=== PATIENT | male | born 1955 | race Caucasian/White ===

== ENCOUNTER 2020-08-21 09:45 | Inpatient (IN) ==
[2020-08-21] MEDS ORDERED: CeFAZolin Syr 2,000MG/20 ML 2,000 MG/20 ML SYRINGE IVPB ONE (10:03)
[2020-08-21] MEDS ORDERED: Ringers Solution, Lactated 1,000 ML IVC SCH ×2 (10:15→10:45)
[2020-08-21] MEDS ORDERED: *HR* OxyCODONE Immed Rel 5 MG TABLET PO PRN (10:44)
[2020-08-21] MEDS ORDERED: Ondansetron 4 MG/2 ML VIAL IVP PRN ×2 (10:44→15:34)
[2020-08-21] MEDS ORDERED: *HR* FentaNYL (PF) 100 MCG/2 ML VIAL IVP PRN (10:44)
[2020-08-21] MEDS ORDERED: Ondansetron 4 MG/2 ML VIAL ONE (11:59)
[2020-08-21] MEDS ORDERED: Lidocaine HCL 4 ML Topical Solution (Laryng-O-Jet Kit Sterile Pak) TP ONE (11:59)
[2020-08-21] MEDS ORDERED: Lidocaine -MPF 2% 2 ML VIAL ONE (11:59)
[2020-08-21] MEDS ORDERED: *HR* Rocuronium Bromide 50 MG/5 ML VIAL ONE ×2 (11:59→13:01)
[2020-08-21] MEDS ORDERED: *HR* FentaNYL (PF) 100 MCG/2 ML VIAL ONE (11:59)
[2020-08-21] MEDS ORDERED: Dexamethasone 4 MG/ML VIAL ONE (11:59)
[2020-08-21] MEDS ORDERED: *HR* Propofol 200 MG/20 ML VIAL IVP ONE (12:00)
[2020-08-21] MEDS ORDERED: *HR* Midazolam HCl 2 MG/2 ML VIAL ONE (12:00)
[2020-08-21] MEDS ORDERED: EPHEDrine 50 MG/ML VIAL ONE (12:42)
[2020-08-21] MEDS ORDERED: Sugammadex Sodium 200 MG/2 ML VIAL IV ONE (13:41)
[2020-08-21] MEDS ORDERED: *HR* HYDROMORPHONE 2 MG/ML VIAL ONE (14:02)
[2020-08-21] MEDS ORDERED: Ketorolac 15 MG/ML VIAL IVP ONE (15:06)
[2020-08-21] MEDS ORDERED: Iron Sucrose Complex 400 MG in 0.9 % Sodium Chloride 250 ML IVPB ONE (15:34)
[2020-08-21] MEDS ORDERED: Naloxone 0.4 MG/ML INJ IVP PRN (15:34)
[2020-08-21] MEDS: Gabapentin 300 MG CAPSULE PO SCH ×2 (15:50→20:59)
[2020-08-21] MEDS: 0.9 % Sodium Chloride 1,000 ML IVC SCH (15:50)
[2020-08-21] MEDS: *HR* HYDROcodone/Acet 5/325 mg TABLET PO PRN ×2 (15:50→19:44)
[2020-08-21] MEDS: Ipratropium/Albuterol Neb 3 ML IH SCH ×2 (15:52→20:17)
[2020-08-21] MEDS: Ketorolac 15 MG/ML VIAL IVP SCH ×2 (17:19→23:56)
[2020-08-21] MEDS: Sennosides/Docusate Sodium TABLET PO SCH (20:59)
[2020-08-21] MEDS: *HR* Heparin 5,000 UNIT/ML VIAL SQ SCH (20:59)
[2020-08-21] MEDS: traZODone 50 MG TABLET PO PRN (20:59)
[2020-08-21] MEDS: Famotidine 20 MG TABLET PO SCH (20:59)
[2020-08-22] MEDS: Ipratropium/Albuterol Neb 3 ML IH SCH ×6 (00:05→20:12)
[2020-08-22 02:35] LABS: Hematocrit 43.3 % (37.5-50.1); Hemoglobin 15.1 g/dL (12.9-16.9); Mean Corpuscular HGB Conc 34.9 g/dL (31.6-35.5); Mean Corpuscular Hemoglobin 31.2 pg (28.0-33.3); Mean Corpuscular Volume 89.5 fL (83.0-100.0); Mean Platelet Volume 9.4 fL (9.4-12.4); Platelet Count 268 K/mcL (140-400); Red Blood Count 4.84 M/mcL (4.19-5.50); Red Cell Distribution Width 12.6 % (11.5-14.5); White Blood Count 16.3 K/mcL (4.3-11.1)
[2020-08-22 02:57] LABS: Alanine Aminotransferase 21 Units/L (7-52); Albumin 3.9 g/dL (3.5-5.7); Albumin/Globulin Ratio 1.4 (1.1-2.2); Alkaline Phosphatase 58 Units/L (34-104); Aspartate Amino Transferase 25 Units/L (13-39); BUN/Creatinine Ratio 27 (6-26); Bilirubin,Direct 0.1 mg/dL (0.0-0.2); Bilirubin,Indirect 0.4 mg/dL (0.0-1.0); Bilirubin,Total 0.5 mg/dL (0.3-1.0); Blood Urea Nitrogen 19 mg/dL (8-23); Calcium 8.8 mg/dL (8.6-10.3); Carbon Dioxide 26 mEq/L (23-29); Chloride 102 mEq/L (98-107); Globulin 2.7 g/dL (2.4-3.5); Glucose 125 mg/dL (70-105); Magnesium 1.9 mg/dL (1.6-2.6); Osmolality,Calculated 290 (280-300); Potassium 3.6 mEq/L (3.5-5.1); Sodium 138 mEq/L (136-145); Total Protein 6.6 g/dL (6.4-8.9); eGFR For African Americans > 60 (> 60); eGFR For Non-African Americans > 60 (> 60)
[2020-08-22] MEDS: *HR* Heparin 5,000 UNIT/ML VIAL SQ SCH ×3 (05:45→22:40)
[2020-08-22] MEDS: Ketorolac 15 MG/ML VIAL IVP SCH ×3 (05:45→18:12)
[2020-08-22] MEDS: *HR* HYDROcodone/Acet 5/325 mg TABLET PO PRN ×3 (08:04→21:02)
[2020-08-22] MEDS: Finasteride 5 MG TABLET PO SCH (08:04)
[2020-08-22] MEDS: Sennosides/Docusate Sodium TABLET PO SCH ×2 (08:04→21:02)
[2020-08-22] MEDS: Aspirin Enteric Coated 81 MG Tablet PO SCH (08:04)
[2020-08-22] MEDS: Gabapentin 300 MG CAPSULE PO SCH ×3 (08:04→21:02)
[2020-08-22] MEDS: Famotidine 20 MG TABLET PO SCH ×2 (08:05→21:02)
[2020-08-22] MEDS: Melatonin 3 MG TABLET PO SCH ×2 (08:06→22:41)
[2020-08-22] MEDS: 0.9 % Sodium Chloride 1,000 ML IVC SCH (08:32)
[2020-08-22] MEDS: traZODone 50 MG TABLET PO PRN (22:41)
[2020-08-23] MEDS: Ipratropium/Albuterol Neb 3 ML IH SCH ×4 (00:04→11:20)
[2020-08-23] MEDS: Ketorolac 15 MG/ML VIAL IVP SCH ×2 (00:22→06:28)
[2020-08-23] MEDS: *HR* Heparin 5,000 UNIT/ML VIAL SQ SCH (06:29)
[2020-08-23 06:45] VITALS: BP 128/70
[2020-08-23] MEDS: Sennosides/Docusate Sodium TABLET PO SCH (07:44)
[2020-08-23] MEDS: Finasteride 5 MG TABLET PO SCH (07:44)
[2020-08-23] MEDS: Gabapentin 300 MG CAPSULE PO SCH (07:45)
[2020-08-23] MEDS: Famotidine 20 MG TABLET PO SCH (07:45)
[2020-08-23] MEDS: Aspirin Enteric Coated 81 MG Tablet PO SCH (07:45)
[2020-08-23] MEDS: *HR* HYDROcodone/Acet 5/325 mg TABLET PO PRN (10:38)
== END 2020-08-23 12:45 | disposition home or self-care (01) | DRG 165 ==
LOC: SAMDAY 09:45 → 2NNU 15:34
PROVIDERS: ADMIT Thoracic Surgery (Cardiothoracic Vascular Surgery); ATTEND Thoracic Surgery (Cardiothoracic Vascular Surgery)

== ENCOUNTER 2020-08-26 17:05 | Inpatient (IN) ==
[2020-08-26 18:17] LABS: Basophils # 0.1 K/mcL (0.0-0.2); Basophils % 0.6 %; Eosinophils # 0.6 K/mcL (0.0-0.6); Eosinophils % 4.1 %; Hematocrit 48.2 % (37.5-50.1); Hemoglobin 16.5 g/dL (12.9-16.9); Immature Granulocytes % 0.6 % (0-4); Lymphocytes # 2.2 K/mcL (0.6-4.6); Lymphocytes % 16.7 %; Mean Corpuscular HGB Conc 34.2 g/dL (31.6-35.5); Mean Corpuscular Hemoglobin 30.7 pg (28.0-33.3); Mean Corpuscular Volume 89.8 fL (83.0-100.0); Mean Platelet Volume 9.1 fL (9.4-12.4); Monocytes # 1.6 K/mcL (0.0-1.3); Monocytes % 12.3 %; Neutrophils # 8.8 K/mcL (1.6-8.9); Platelet Count 312 K/mcL (140-400); Red Blood Count 5.37 M/mcL (4.19-5.50); Red Cell Distribution Width 12.8 % (11.5-14.5); Segmented Neutrophils % 65.7 %; White Blood Count 13.4 K/mcL (4.3-11.1)
[2020-08-26 18:34] LABS: Alanine Aminotransferase 23 Units/L (7-52); Albumin 3.9 g/dL (3.5-5.7); Albumin/Globulin Ratio 1.3 (1.1-2.2); Alkaline Phosphatase 63 Units/L (34-104); Aspartate Amino Transferase 16 Units/L (13-39); BUN/Creatinine Ratio 34 (6-26); Bilirubin,Total 0.5 mg/dL (0.3-1.0); Blood Urea Nitrogen 24 mg/dL (8-23); Calcium 9.2 mg/dL (8.6-10.3); Carbon Dioxide 31 mEq/L (23-29); Chloride 99 mEq/L (98-107); Globulin 3.1 g/dL (2.4-3.5); Glucose 88 mg/dL (70-105); Osmolality,Calculated 285 (280-300); Potassium 4.1 mEq/L (3.5-5.1); Sodium 136 mEq/L (136-145); eGFR For African Americans > 60 (> 60); eGFR For Non-African Americans > 60 (> 60)
[2020-08-26] MEDS ORDERED: Naloxone 0.4 MG/ML INJ IVP PRN (19:49)
[2020-08-26] MEDS ORDERED: Ondansetron 4 MG/2 ML VIAL IVP PRN (19:49)
[2020-08-26] MEDS ORDERED: *HR* HYDROcodone/Acet 5/325 mg TABLET PO ONE (20:44)
[2020-08-26] MEDS ORDERED: Finasteride 5 MG TABLET PO SCH (23:15)
[2020-08-26] MEDS: Finasteride 5 MG TABLET PO SCH (23:27)
[2020-08-26] MEDS: traZODone 50 MG TABLET PO SCH (23:28)
[2020-08-27 01:11] LABS: Hematocrit 47.2 % (37.5-50.1); Hemoglobin 16.1 g/dL (12.9-16.9); Mean Corpuscular HGB Conc 34.1 g/dL (31.6-35.5); Mean Corpuscular Hemoglobin 30.6 pg (28.0-33.3); Mean Corpuscular Volume 89.7 fL (83.0-100.0); Mean Platelet Volume 9.4 fL (9.4-12.4); Platelet Count 307 K/mcL (140-400); Red Blood Count 5.26 M/mcL (4.19-5.50); Red Cell Distribution Width 12.7 % (11.5-14.5); White Blood Count 12.6 K/mcL (4.3-11.1)
[2020-08-27 01:30] LABS: BUN/Creatinine Ratio 35 (6-26); Blood Urea Nitrogen 25 mg/dL (8-23); Calcium 8.9 mg/dL (8.6-10.3); Carbon Dioxide 30 mEq/L (23-29); Chloride 101 mEq/L (98-107); Glucose 120 mg/dL (70-105); Osmolality,Calculated 290 (280-300); Potassium 3.7 mEq/L (3.5-5.1); Sodium 137 mEq/L (136-145); eGFR For African Americans > 60 (> 60); eGFR For Non-African Americans > 60 (> 60)
[2020-08-27] MEDS: *HR* HYDROcodone/Acet 5/325 mg TABLET PO PRN ×2 (04:09→10:24)
[2020-08-27] MEDS ORDERED: Finasteride 5 MG TABLET PO SCH (09:00)
[2020-08-27] MEDS: Gabapentin 300 MG CAPSULE PO SCH ×3 (09:16→21:53)
[2020-08-27] MEDS: Cyanocobalamin (B-12) 1,000 MCG TABLET PO SCH (09:16)
[2020-08-27] MEDS: Aspirin Enteric Coated 81 MG Tablet PO SCH (09:16)
[2020-08-27] MEDS ORDERED: Lidocaine 1% 20 ML MDV ID ONE (11:59)
[2020-08-27] MEDS: *HR* HYDROcodone/Acet 5/325 mg TABLET PO SCH ×2 (13:08→17:01)
[2020-08-27] MEDS ORDERED: CLEAR EYES NATURAL TEARS 15 ML BOTTLE BOTH EYES PRN (13:22)
[2020-08-27] MEDS: polyethylene glycoL 3350 17 GM POWD.PACK PO SCH (14:11)
[2020-08-27] MEDS ORDERED: NON-FORMULARY MEDICATION 1 EACH EACH (Trazodone Hcl 100 MG Tablet) PO SCH (21:00)
[2020-08-27] MEDS: traZODone 50 MG TABLET PO SCH (21:52)
[2020-08-27] MEDS: Melatonin 3 MG TABLET PO SCH (21:52)
[2020-08-27] MEDS: Finasteride 5 MG TABLET PO SCH (21:53)
[2020-08-28] MEDS: *HR* HYDROcodone/Acet 5/325 mg TABLET PO SCH ×4 (00:01→17:43)
[2020-08-28 03:06] LABS: Basophils # 0.1 K/mcL (0.0-0.2); Basophils % 0.7 %; Eosinophils # 0.7 K/mcL (0.0-0.6); Eosinophils % 5.5 %; Hematocrit 47.4 % (37.5-50.1); Hemoglobin 16.5 g/dL (12.9-16.9); Immature Granulocytes % 0.9 % (0-4); Lymphocytes # 2.2 K/mcL (0.6-4.6); Lymphocytes % 17.7 %; Mean Corpuscular HGB Conc 34.8 g/dL (31.6-35.5); Mean Corpuscular Hemoglobin 31.7 pg (28.0-33.3); Mean Corpuscular Volume 91.2 fL (83.0-100.0); Monocytes # 1.2 K/mcL (0.0-1.3); Monocytes % 9.8 %; Platelet Count 302 K/mcL (140-400); Red Cell Distribution Width 12.5 % (11.5-14.5); Segmented Neutrophils % 65.4 %; White Blood Count 12.2 K/mcL (4.3-11.1)
[2020-08-28 03:25] LABS: BUN/Creatinine Ratio 44 (6-26); Blood Urea Nitrogen 27 mg/dL (8-23); Calcium 8.9 mg/dL (8.6-10.3); Carbon Dioxide 30 mEq/L (23-29); Chloride 100 mEq/L (98-107); Glucose 116 mg/dL (70-105); Magnesium 1.9 mg/dL (1.6-2.6); Osmolality,Calculated 286 (280-300); Sodium 135 mEq/L (136-145); eGFR For African Americans > 60 (> 60); eGFR For Non-African Americans > 60 (> 60)
[2020-08-28] MEDS: Cholecalciferol (D-3) 1,000 UNIT (25MCG) TABLET PO SCH (08:48)
[2020-08-28] MEDS: Ascorbic Acid 500 MG TABLET PO SCH (08:48)
[2020-08-28] MEDS: polyethylene glycoL 3350 17 GM POWD.PACK PO SCH (08:48)
[2020-08-28] MEDS: Aspirin Enteric Coated 81 MG Tablet PO SCH (08:48)
[2020-08-28] MEDS: Gabapentin 300 MG CAPSULE PO SCH ×3 (08:49→22:25)
[2020-08-28] MEDS: Cyanocobalamin (B-12) 1,000 MCG TABLET PO SCH (08:49)
[2020-08-28] MEDS: Finasteride 5 MG TABLET PO SCH (22:25)
[2020-08-28] MEDS: traZODone 50 MG TABLET PO SCH (22:26)
[2020-08-28] MEDS: Melatonin 3 MG TABLET PO SCH (22:27)
[2020-08-29] MEDS: *HR* HYDROcodone/Acet 5/325 mg TABLET PO SCH ×5 (00:27→23:47)
[2020-08-29 03:49] LABS: Basophils # 0.1 K/mcL (0.0-0.2); Basophils % 0.7 %; Eosinophils # 0.7 K/mcL (0.0-0.6); Hematocrit 47.6 % (37.5-50.1); Hemoglobin 16.5 g/dL (12.9-16.9); Immature Granulocytes % 0.9 % (0-4); Lymphocytes # 2.2 K/mcL (0.6-4.6); Lymphocytes % 18.4 %; Mean Corpuscular HGB Conc 34.7 g/dL (31.6-35.5); Mean Corpuscular Hemoglobin 30.8 pg (28.0-33.3); Mean Corpuscular Volume 88.8 fL (83.0-100.0); Mean Platelet Volume 9.1 fL (9.4-12.4); Monocytes # 1.1 K/mcL (0.0-1.3); Monocytes % 9.1 %; Neutrophils # 7.9 K/mcL (1.6-8.9); Platelet Count 309 K/mcL (140-400); Red Blood Count 5.36 M/mcL (4.19-5.50); Red Cell Distribution Width 12.5 % (11.5-14.5); Segmented Neutrophils % 64.9 %; White Blood Count 12.1 K/mcL (4.3-11.1)
[2020-08-29 04:09] LABS: BUN/Creatinine Ratio 40 (6-26); Blood Urea Nitrogen 24 mg/dL (8-23); Calcium 8.9 mg/dL (8.6-10.3); Carbon Dioxide 28 mEq/L (23-29); Chloride 100 mEq/L (98-107); Glucose 116 mg/dL (70-105); Magnesium 1.9 mg/dL (1.6-2.6); Osmolality,Calculated 285 (280-300); Potassium 3.9 mEq/L (3.5-5.1); Sodium 135 mEq/L (136-145); eGFR For African Americans > 60 (> 60); eGFR For Non-African Americans > 60 (> 60)
[2020-08-29] MEDS: Cholecalciferol (D-3) 1,000 UNIT (25MCG) TABLET PO SCH (09:39)
[2020-08-29] MEDS: polyethylene glycoL 3350 17 GM POWD.PACK PO SCH (09:39)
[2020-08-29] MEDS: Gabapentin 300 MG CAPSULE PO SCH ×3 (09:39→20:45)
[2020-08-29] MEDS: Aspirin Enteric Coated 81 MG Tablet PO SCH (09:39)
[2020-08-29] MEDS: Ascorbic Acid 500 MG TABLET PO SCH (09:40)
[2020-08-29] MEDS: Cyanocobalamin (B-12) 1,000 MCG TABLET PO SCH (09:40)
[2020-08-29] MEDS: Melatonin 3 MG TABLET PO SCH (20:44)
[2020-08-29] MEDS: traZODone 50 MG TABLET PO SCH (20:45)
[2020-08-29] MEDS: Finasteride 5 MG TABLET PO SCH (20:46)
[2020-08-30 03:25] LABS: Basophils # 0.1 K/mcL (0.0-0.2); Basophils % 0.8 %; Eosinophils # 0.6 K/mcL (0.0-0.6); Eosinophils % 5.2 %; Hematocrit 47.8 % (37.5-50.1); Hemoglobin 16.8 g/dL (12.9-16.9); Immature Granulocytes % 0.7 % (0-4); Lymphocytes # 2.3 K/mcL (0.6-4.6); Lymphocytes % 19.8 %; Mean Corpuscular HGB Conc 35.1 g/dL (31.6-35.5); Mean Corpuscular Hemoglobin 31.8 pg (28.0-33.3); Mean Corpuscular Volume 90.5 fL (83.0-100.0); Mean Platelet Volume 9.1 fL (9.4-12.4); Monocytes # 1.2 K/mcL (0.0-1.3); Monocytes % 10.4 %; Neutrophils # 7.3 K/mcL (1.6-8.9); Platelet Count 313 K/mcL (140-400); Red Blood Count 5.28 M/mcL (4.19-5.50); Red Cell Distribution Width 12.4 % (11.5-14.5); Segmented Neutrophils % 63.1 %; White Blood Count 11.6 K/mcL (4.3-11.1)
[2020-08-30 03:50] LABS: BUN/Creatinine Ratio 46 (6-26); Blood Urea Nitrogen 26 mg/dL (8-23); Calcium 8.9 mg/dL (8.6-10.3); Carbon Dioxide 28 mEq/L (23-29); Chloride 99 mEq/L (98-107); Glucose 109 mg/dL (70-105); Magnesium 1.9 mg/dL (1.6-2.6); Osmolality,Calculated 285 (280-300); Potassium 3.9 mEq/L (3.5-5.1); Sodium 135 mEq/L (136-145); eGFR For African Americans > 60 (> 60); eGFR For Non-African Americans > 60 (> 60)
[2020-08-30] MEDS: *HR* HYDROcodone/Acet 5/325 mg TABLET PO SCH ×3 (05:43→18:54)
[2020-08-30] MEDS: polyethylene glycoL 3350 17 GM POWD.PACK PO SCH (08:31)
[2020-08-30] MEDS: Aspirin Enteric Coated 81 MG Tablet PO SCH (08:31)
[2020-08-30] MEDS: Cyanocobalamin (B-12) 1,000 MCG TABLET PO SCH (08:31)
[2020-08-30] MEDS: Cholecalciferol (D-3) 1,000 UNIT (25MCG) TABLET PO SCH (08:31)
[2020-08-30] MEDS: Gabapentin 300 MG CAPSULE PO SCH ×3 (08:31→20:25)
[2020-08-30] MEDS: Ascorbic Acid 500 MG TABLET PO SCH (08:31)
[2020-08-30] MEDS: Melatonin 3 MG TABLET PO SCH (20:25)
[2020-08-30] MEDS: Finasteride 5 MG TABLET PO SCH (20:25)
[2020-08-30] MEDS: traZODone 50 MG TABLET PO SCH (20:26)
[2020-08-31 01:48] LABS: Basophils # 0.1 K/mcL (0.0-0.2); Basophils % 0.8 %; Eosinophils # 0.6 K/mcL (0.0-0.6); Eosinophils % 5.4 %; Hematocrit 47.2 % (37.5-50.1); Hemoglobin 16.5 g/dL (12.9-16.9); Immature Granulocytes % 0.6 % (0-4); Lymphocytes % 19.1 %; Mean Corpuscular Hemoglobin 31.5 pg (28.0-33.3); Mean Corpuscular Volume 90.1 fL (83.0-100.0); Mean Platelet Volume 8.9 fL (9.4-12.4); Monocytes # 1.1 K/mcL (0.0-1.3); Monocytes % 10.4 %; Neutrophils # 6.7 K/mcL (1.6-8.9); Platelet Count 298 K/mcL (140-400); Red Blood Count 5.24 M/mcL (4.19-5.50); Red Cell Distribution Width 12.3 % (11.5-14.5); Segmented Neutrophils % 63.7 %; White Blood Count 10.4 K/mcL (4.3-11.1)
[2020-08-31] MEDS ORDERED: Acetaminophen 325 MG TABLET PO PRN (02:05)
[2020-08-31 02:09] LABS: BUN/Creatinine Ratio 40 (6-26); Blood Urea Nitrogen 25 mg/dL (8-23); Calcium 8.8 mg/dL (8.6-10.3); Carbon Dioxide 27 mEq/L (23-29); Chloride 102 mEq/L (98-107); Glucose 101 mg/dL (70-105); Magnesium 2.1 mg/dL (1.6-2.6); Osmolality,Calculated 285 (280-300); Potassium 4.1 mEq/L (3.5-5.1); Sodium 135 mEq/L (136-145); eGFR For African Americans > 60 (> 60); eGFR For Non-African Americans > 60 (> 60)
[2020-08-31] MEDS: *HR* HYDROcodone/Acet 5/325 mg TABLET PO SCH ×3 (03:07→12:39)
[2020-08-31] MEDS: Cyanocobalamin (B-12) 1,000 MCG TABLET PO SCH (07:29)
[2020-08-31] MEDS: Gabapentin 300 MG CAPSULE PO SCH (07:30)
[2020-08-31] MEDS: Ascorbic Acid 500 MG TABLET PO SCH (07:30)
[2020-08-31] MEDS: polyethylene glycoL 3350 17 GM POWD.PACK PO SCH (07:30)
[2020-08-31] MEDS: Aspirin Enteric Coated 81 MG Tablet PO SCH (07:30)
[2020-08-31] MEDS: Cholecalciferol (D-3) 1,000 UNIT (25MCG) TABLET PO SCH (07:30)
[2020-08-31 11:48] VITALS: BP 126/69
== END 2020-08-31 13:07 | disposition home or self-care (01) | DRG 200 ==
LOC: EMEROOARM 17:05 → 2ANU 17:05 → SUATTDRO 20:11 → 2ANU 21:44
PROVIDERS: ADMIT Student in an Organized Health Care Education/Training Program; ATTEND Pharmacist